=== PATIENT | female | born 1975 | race African-American/Black ===

== ENCOUNTER 2019-03-08 04:46 | Emergency (ER) | payer MEDICAID ==
[~2019-03-08] VITALS: Ht 157.5 cm; Wt 72.6 kg
--- NOTE | 2019-03-08 04:50 | NUR ---
ED Nurse Note: PT BIBA R34 FROM HOME C/C HYPOGLYCEMIA, PT WAS ALTERED AT HOME AND FAMILY MEMBER CALLED 911, ON SCENE PT BS=23. D10 GIVEN ON FIELD BY MEDIC, REPEAT BS 234 by EMS. BS recheck by nurse 136. Pt is AO x 4times, VSS, on room air no distress. ERMD seen Pt at bedside.
[2019-03-08 05:24] LABS: BASOPHILS % (AUTO) 1.4 % (0.0-2.0); EOSINOPHILS % (AUTO) 1.9 % (0.0-3.0); HEMATOCRIT 39.2 % (37.0-47.0); HEMOGLOBIN 12.6 G/DL (12.0-16.0); LYMPHOCYTES % (AUTO) 33.9 % (20.0-45.0); MEAN CORPUSCULAR VOLUME 94 FL (80-99); MONOCYTES % (AUTO) 5.9 % (1.0-10.0); NEUTROPHILS % (AUTO) 56.9 % (45.0-75.0); PLATELET COUNT 223 K/UL (150-450); RED BLOOD COUNT 4.15 M/UL (4.20-5.40); RED CELL DISTRIBUTION WIDTH 13.5 % (11.6-14.8); WHITE BLOOD COUNT 6.1 K/UL (4.8-10.8)
[2019-03-08 05:27] LABS: ANION GAP 5 mmol/L (5-15); BLOOD UREA NITROGEN 15 mg/dL (7-18); CALCIUM 9.4 MG/DL (8.5-10.1); CARBON DIOXIDE 31 MMOL/L (21-32); CHLORIDE 107 MMOL/L (98-107); CREATININE 0.9 MG/DL (0.55-1.30); POTASSIUM 4.2 MMOL/L (3.5-5.1); SODIUM 143 MMOL/L (136-145)
[2019-03-08 05:32] LABS: ALANINE AMINOTRANSFERASE 59 U/L (12-78); ALBUMIN 3.4 G/DL (3.4-5.0); ALBUMIN/GLOBULIN RATIO 0.8 (1.0-2.7); ALKALINE PHOSPHATASE 100 U/L (46-116); ASPARTATE AMINO TRANSFERASE 55 U/L (15-37); BILIRUBIN,TOTAL 0.5 MG/DL (0.2-1.0)
--- NOTE | 2019-03-08 05:32 | NUR ---
ED Nurse Note: blood and urine sent to lab.
--- NOTE | 2019-03-08 05:40 | NUR ---
ED Nurse Note: Phone with insurance, knowing Pt will transfer to other hospital. Await for insurance respond back.
[2019-03-08 05:42] VITALS: BP 167/110
[2019-03-08 05:56] LABS: BILIRUBIN, URINE NEGATIVE (NEGATIVE); COLOR,URINE PALE YELLOW; GLUCOSE, URINE (UA) 1+ (NEGATIVE); KETONES,URINE NEGATIVE (NEGATIVE); LEUKOCYTE ESTERASE ,URINE NEGATIVE (NEGATIVE); NITRITE,URINE NEGATIVE (NEGATIVE); PH,URINE 6 (4.5-8.0); PROTEIN,URINE 3+ (NEGATIVE); UROBILINOGEN,URINE NORMAL MG/DL (0.0-1.0)
--- NOTE | 2019-03-08 05:57 | Emergency Room Report ---
History of Present Illness General Chief Complaint: Abnormal Labs Source: Patient, Family Member, EMS Present Illness HPI 43-year-old female presents ED for evaluation. Brought in by EMS from home for altered mental status. Accu-Chek critically low. Given D10. Repeat Accu-Chek improved. Patient states she feels better. History of diabetes. States she takes insulin in the mornings and in the evenings. States she did not miss a meal. States she has been compliant with her medications. States this been no adjustment in her dosages. Son states that this is the third time in the past week where her Accu-Chek was critically low and she required treatment by EMS. The first 2 times patient refused to go to the hospital. No other aggravating relieving factors. Denies any other associated symptoms Allergies: Coded Allergies: No Known Allergies (Unverified , 03/08/19) Patient History Past Medical History: none Past Surgical History: none Pertinent Family History: none Social History: Denies: smoking, alcohol use, drug use Now: No Immunizations: UTD Reviewed Nursing Documentation: PMH: Agreed; PSxH: Agreed Nursing Documentation-PMH Past Medical History: No History, Except For Hx Hypertension: Yes Hx Diabetes: Yes Review of Systems All Other Systems: negative except mentioned in HPI Physical Exam Vital Signs Date Time Temp Pulse Resp B/P (MAP) Pulse Ox O2 Delivery O2 Flow Rate FiO2 03/08/19 04:41 98.2 75 18 185/118 (140) 98 Room Air Sp02 EP Interpretation: reviewed, normal General Appearance: no apparent distress, alert, GCS 15, non-toxic Head: normocephalic, atraumatic Eyes: bilateral eye normal inspection, bilateral eye PERRL ENT: hearing grossly normal, normal pharynx, no angioedema, normal voice Neck: full range of motion, supple/symm/no masses Respiratory: chest non-tender, lungs clear, normal breath sounds, speaking full sentences Cardiovascular #1: regular rate, rhythm, no edema Cardiovascular #2: 2+ carotid (R), 2+ carotid (L), 2+ radial (R), 2+ radial (L) , 2+ dorsalis pedis (R), 2+ dorsalis pedis (L) Gastrointestinal: normal bowel sounds, non tender, soft, non-distended, no guarding, no rebound Rectal: deferred Genitourinary: normal inspection, no CVA tenderness Musculoskeletal: back normal, gait/station normal, normal range of motion, non- tender Neurologic: alert, oriented x3, responsive, motor strength/tone normal, sensory intact, speech normal Psychiatric: judgement/insight normal, memory normal, mood/affect normal, no suicidal/homicidal ideation Reflexes: 3+ bicep (R), 3+ bicep (L), 3+ tricep (R), 3+ tricep (L), 3+ knee (R) , 3+ knee (L) Lymphatic: no adenopathy Medical Decision Making Diagnostic Impression: Primary Impression: Hypoglycemia Additional Impression: UTI (urinary tract infection) Qualified Codes: N39.0 - Urinary tract infection, site not specified ER Course Hospital Course 43-year-old female presenting to ED with generalized weakness, low FS in field Differential diagnoses include: dehyration, sepsis, hypoglycemia Clinical course Patient placed on stretcher. On front desk monitor. After initial history and physical I ordered labs Labs-glucose 94, electrolytes ok, no leukocytosis, hb/hct stable, UA + bacteria Given antibiotics in ED. This is the third episode of hypoglycemia in 1 week. Patient will require inpatient management of her medications. because of insurance patient will be transferred. States that she would prefer not to be transferred and will follow up with her PMD today. Patient states she wishes to go home. Understands the risks of leaving. Patient has competency to make her own decisions. Signed AMA form. i. I feel this is a highly complex case requiring extensive working including EKG/Rhythm strip, Xray/CT/US, Blood/urine lab work, repeat exams while in ED, and administration of strong opiates/narcotics for pain control, admission to hospital or close patient follow up. diagnosis - hypoglycemia, UTI patient left AMA Labs Test 03/08/19 04:50 03/08/19 05:28 White Blood Count 6.1 K/UL (4.8-10.8) Red Blood Count 4.15 M/UL (4.20-5.40) Hemoglobin 12.6 G/DL (12.0-16.0) Hematocrit 39.2 % (37.0-47.0) Mean Corpuscular Volume 94 FL (80-99) Mean Corpuscular Hemoglobin 30.4 PG (27.0-31.0) Mean Corpuscular Hemoglobin Concent 32.2 G/DL (32.0-36.0) Red Cell Distribution Width 13.5 % (11.6-14.8) Platelet Count 223 K/UL (150-450) Mean Platelet Volume 6.2 FL (6.5-10.1) Neutrophils (%) (Auto) 56.9 % (45.0-75.0) Lymphocytes (%) (Auto) 33.9 % (20.0-45.0) Monocytes (%) (Auto) 5.9 % (1.0-10.0) Eosinophils (%) (Auto) 1.9 % (0.0-3.0) Basophils (%) (Auto) 1.4 % (0.0-2.0) Sodium Level 143 MMOL/L (136-145) Potassium Level 4.2 MMOL/L (3.5-5.1) Chloride Level 107 MMOL/L (98-107) Carbon Dioxide Level 31 MMOL/L (21-32) Anion Gap 5 mmol/L (5-15) Blood Urea Nitrogen 15 mg/dL (7-18) Creatinine 0.9 MG/DL (0.55-1.30) Estimat Glomerular Filtration Rate > 60 mL/min (>60) Glucose Level 94 MG/DL (74-106) Calcium Level 9.4 MG/DL (8.5-10.1) Magnesium Level 2.1 MG/DL (1.8-2.4) Total Bilirubin 0.5 MG/DL (0.2-1.0) Aspartate Amino Transf (AST/SGOT) 55 U/L (15-37) Alanine Aminotransferase (ALT/SGPT) 59 U/L (12-78) Alkaline Phosphatase 100 U/L (46-116) Total Protein 7.7 G/DL (6.4-8.2) Albumin 3.4 G/DL (3.4-5.0) Globulin 4.3 g/dL Albumin/Globulin Ratio 0.8 (1.0-2.7) Last Vital Signs Date Time Temp Pulse Resp B/P (MAP) Pulse Ox O2 Delivery O2 Flow Rate FiO2 03/08/19 05:42 98.3 88 18 167/110 100 Room Air Status: improved Disposition: AGAINST MEDICAL ADVICE Condition: Stable Scripts Cephalexin* (KEFLEX*) 500 Mg Capsule 500 MG ORAL EVERY 6 HOURS for 7 Days, CAP Prov: Shad Amezquita MD 03/08/19 Referrals: NON PHYSICIAN (PCP) Shad Amezquita MD Mar 08, 2019 05:57
[2019-03-08 06:07] LABS: APPEARANCE,URINE SLIGHTLY CLOUDY
[2019-03-08] MEDS ORDERED: cefTRIAXone 1 GM in NS 55 ML IVPB ONE (06:15)
--- NOTE | 2019-03-08 07:15 | NUR ---
HAND-OFF: Report given to Tessie ELLIOTT.
[2019-03-08 07:18] VITALS: BP 194/100
[2019-03-08 07:50] VITALS: BP 154/110
[2019-03-08] MEDS ORDERED: CEPHALEXIN500 MG ORAL (07:52)
[2019-03-08 08:12] VITALS: BP 154/110
--- NOTE | 2019-03-08 08:12 | NUR ---
AMA: SEE AMA FORM. Patient left AMA, Dr. Amezquita at bedside, explained to patient and family the risk of leaving AMA. patient reports that she does not want to get transferred out, she will visit her PMD today this morning when the office opens at 9AM. IV removed without complication. Patient left with all of her belongings in steady gait.
== END 2019-03-08 08:12 | disposition left against medical advice (07) ==
LOC: EDBD 04:46 → EMR 05:26 → CANBEDREQ 07:44 → EMR 08:12
DX: E11.649 Type 2 diabetes mellitus with hypoglycemia without coma (principal); N39.0 Urinary tract infection, site not specified; I10 Essential (primary) hypertension; Z79.4 Long term (current) use of insulin
CPT/HCPCS: 36415; 80053; 81003; 82009; 82962; 83735; 85025; 87086; 96365; 96375; 99284; J0360; J0696

== ENCOUNTER 2020-04-29 08:22 | Emergency (ER) | payer MEDICAID ==
[~2020-04-29] VITALS: Ht 157.5 cm; Wt 79.4 kg
[~2020-04-29 08:22] MED LIST: CEPHALEXIN500 MG ORAL
[2020-04-29 08:24] VITALS: BP 187/99
--- NOTE | 2020-04-29 08:24 | NUR ---
ED Nurse Note: PT ARRIVED WITH RA 94 FROM HOME DUE TO HYPOLGYCEMIA 67, PER EMS PT RECEIVED 250 OF D10. PT IS AOX4, ON ROOM AIR. PT HAS TO IV LINES ETABLISHED PER EMS. PT IS ABLE TO ASNWER QUESTION, NO ACUTE DISTRESS NOTED AT THIS TIME. ERMD AT BED SIDE
--- NOTE | 2020-04-29 08:25 | NUR ---
ED Nurse Note: (KARLOS PEACE): [phone]
--- NOTE | 2020-04-29 08:32 | Emergency Room Report ---
History of Present Illness General Chief Complaint: Abnormal Labs Source: Patient Present Illness HPI The patient is brought in by EMS for hypoglycemia. Her children heard her fall. She scraped her leg. Her blood sugar at home was 27. Paramedics report that your level was too low to register on their machine. They administered D10 water 250 ml. Their second blood sugar was 67. The patient remembers taking her insulin last night. She did not measure her blood sugar at that time. She takes 30 and 14 at night and 40 and 10 in the morning. She did not take her morning insulin. The last hypoglycemic episode she had was 2 days ago. She refused transport at that time. She denies any headache or neck pain. She does not believe she hit her head. She has not changed her insulin dosing recently. She states she ate last night also. She was seen here February 2019 with hypoglycemia. During that visit she left AGAINST MEDICAL ADVICE. The only other somatic complaints that she has is swelling in her legs. She intermittently takes water pills for this. She denies any calf pain. No fevers, chills, sore throat, chest pain, palpitations, nausea, vomiting, diarrhea, dysuria, abdominal pain, shortness of breath, joint pain, rashes, depression, anxiety, visual changes,headache. Due for her cycle to begin soon. Allergies: Coded Allergies: No Known Allergies (Unverified , 03/08/19) COVID-19 Screening Contact w/high risk pt: No Experienced COVID-19 symptoms?: No COVID-19 Testing performed DITCHER OPERATOR: No Patient History Past Medical History: see triage record Social History: Reports: smoking, alcohol use - rare Social History Narrative at home with and 3 children, 15, 20 and 25 Reviewed Nursing Documentation: PMH: Agreed; PSxH: Agreed Nursing Documentation-PMH Past Medical History: No History, Except For Hx Hypertension: Yes Hx Diabetes: Yes Review of Systems All Other Systems: negative except mentioned in HPI Physical Exam Vital Signs Date Time Temp Pulse Resp B/P (MAP) Pulse Ox O2 Delivery O2 Flow Rate FiO2 04/29/20 08:22 95.5 68 16 171/101 (124) 100 Room Air Sp02 EP Interpretation: reviewed, normal General Appearance: alert - GCS 14 Head: normocephalic, atraumatic Eyes: bilateral eye normal inspection, bilateral eye PERRL, bilateral eye EOMI ENT: moist mucus membranes Neck: supple Respiratory: lungs clear, normal breath sounds Cardiovascular #1: regular rate, rhythm, edema Cardiovascular #2: 2+ radial (R) Gastrointestinal: non tender, soft, decreased bowel sounds, overweight Genitourinary: no CVA tenderness Musculoskeletal: no calf tenderness Neurologic: motor strength/tone normal, radio aerial installer III-XII nml as tested, oriented - X2, DTRs symmetric, sensory intact, other - Slow to respond Psychiatric: depressed affect Skin: other - Shallow scrape right lower leg, cold Medical Decision Making Diagnostic Impression: Primary Impression: Hypoglycemia Additional Impressions: Hypothermia Qualified Codes: T68.XXXA - Hypothermia, initial encounter Hypertension Qualified Codes: I10 - Essential (primary) hypertension Anemia Qualified Codes: D64.9 - Anemia, unspecified Renal insufficiency ER Course Patient presents with hypoglycemic episode and hypothermic. Differential includes sepsis, insulin excess, renal dysfunction, acute myocardial infarction amongst others. Patient evaluated with EKG, chest x-ray and labs. Patient given a dose of D50 water and warming blanket. The patient is slow speaking and this may be related to the hypoglycemic episode that may have been long during the night. Repeated evaluations indicated. Patient placed on flag signalman. EKG sinus rhythm 74 right axis deviation prolonged QT of 192 ms. Chest x-ray negative. Labs remarkable for low blood sugar and renal insufficiency. Patient is also anemic. White count is normal. Hypertensive. Losartan given. Tyesha hugger given for hypothermia. Patient ate. Discussed with patient the need for observation hospitalization due to hypothermia, hypoglycemia, renal insufficiency and anemia. Patient states that she wants to go home to take care of her minor children. We attempted to have her speak with her to take care of her kids. She felt that she could not trust him. She was advised of the risk of if she leaves. Patient is much more alert and not speaking haltingly. Patient understands risk and still decided to sign out AGAINST MEDICAL ADVICE as she did not want to be transferred to [facility] as well [facility] as she needs to take care of her minor daughter. Final blood sugar 91. Patient was advised to reduce her insulin dose to 10+30 twice daily. In addition she requested a prescription for water pill. A prescription for Dyazide was dispensed. Patient was advised to return if she is not doing well or if she changes her mind regarding hospitalization. Last Vital Signs Date Time Temp Pulse Resp B/P (MAP) Pulse Ox O2 Delivery O2 Flow Rate FiO2 04/29/20 13:31 97.9 88 19 167/94 98 Room Air EKG Diagnostic Results Rate: normal Rhythm: NSR ST Segments: no acute changes - Right axis deviation prolonged QT 192 ms Rhythm Strip Diag. Results Rhythm: NSR, no PVC's, no ectopy Chest X-Ray Diagnostic Results Chest X-Ray Diagnostic Results : Chest X-Ray Ordered: Yes # of Views/Limited/Complete: 1 View Indication: Other EP Interpretation: Yes Interpretation: no consolidation, no effusion, no pneumothorax Impression: No acute disease Electronically Signed by: Electronically signed by Jose Bland MD Last Vital Signs Date Time Temp Pulse Resp B/P (MAP) Pulse Ox O2 Delivery O2 Flow Rate FiO2 04/29/20 13:31 97.9 88 19 167/94 98 Room Air Status: improved Disposition: AGAINST MEDICAL ADVICE Condition: Serious Scripts Triamterene/Hydrochlorothiazide* (DYAZIDE 37.5-25 MG TAB*) 1 Each Tablet 1 TAB ORAL DAILY, #20 TAB Prov: Jose Bland MD 04/29/20 Jose Bland MD Apr 29, 2020 08:32
--- NOTE | 2020-04-29 08:34 | NUR ---
ED Nurse Note: ERMD AWARE OF PT TEMPERATURE, 4 WARM BLANKETS PLACED ON PT.
--- NOTE | 2020-04-29 08:41 | NUR ---
ED Nurse Note: MEDICATION ADMINISTERED, PT PROVIDE WITH ORANGE JUICE AND SANDWHICH.
--- NOTE | 2020-04-29 08:43 | NUR ---
ED Nurse Note: PT UNABLE TO URINATE AT THIS TIME, WILL REATTEMPT LATER.
--- NOTE | 2020-04-29 08:51 | NUR ---
ED Nurse Note: XRAY AT BEDSIDE
[2020-04-29] MEDS ORDERED: LOSARTAN POTASS50 MG ORAL (09:05)
[2020-04-29] MEDS ORDERED: Losartan 25mg tab ORAL ONE (09:15)
--- NOTE | 2020-04-29 09:16 | NUR ---
ED Nurse Note: PT TEMPERATURE SHOW NOW CHANGES WITH WARM BLANKETS, BEAR HUGGER PLACED AT 32 CELCIUS
[2020-04-29 09:20] LABS: BASOPHILS % (AUTO) 0.6 % (0.0-2.0); EOSINOPHILS % (AUTO) 1.4 % (0.0-3.0); HEMOGLOBIN 9.1 G/DL (12.0-16.0); MEAN CORPUSCULAR VOLUME 91 FL (80-99); MONOCYTES % (AUTO) 5.4 % (1.0-10.0); NEUTROPHILS % (AUTO) 63.6 % (45.0-75.0); PLATELET COUNT 188 K/UL (150-450); RED BLOOD COUNT 3.07 M/UL (4.20-5.40); RED CELL DISTRIBUTION WIDTH 14.2 % (11.6-14.8); WHITE BLOOD COUNT 6.2 K/UL (4.8-10.8)
--- NOTE | 2020-04-29 09:31 | Diagnostic Imaging Report ---
EXAM: XR Chest, 1 View CLINICAL HISTORY: ALOC TECHNIQUE: Frontal view of the chest. COMPARISON: No relevant prior studies available. FINDINGS: Lungs: Unremarkable. No consolidation. Pleural space: Unremarkable. No pneumothorax. Heart: Unremarkable. No cardiomegaly. Mediastinum: Unremarkable. Bones/joints: Unremarkable. IMPRESSION: No acute cardiopulmonary process.
--- NOTE | 2020-04-29 09:34 | NUR ---
ED Nurse Note: Derrell hernandez to 38 C Addendum: 04/29/20 at 0936 by PDELEON ED Nurse Note: Derrell page increased* to 38 C
[2020-04-29 09:43] LABS: ALANINE AMINOTRANSFERASE 72 U/L (12-78); ALBUMIN 2.5 G/DL (3.4-5.0); ALBUMIN/GLOBULIN RATIO 0.6 (1.0-2.7); ALKALINE PHOSPHATASE 215 U/L (46-116); ANION GAP 6 mmol/L (5-15); ASPARTATE AMINO TRANSFERASE 51 U/L (15-37); BILIRUBIN,TOTAL 0.3 MG/DL (0.2-1.0); BLOOD UREA NITROGEN 36 mg/dL (7-18); CALCIUM 8.5 MG/DL (8.5-10.1); CARBON DIOXIDE 27 MMOL/L (21-32); CHLORIDE 110 MMOL/L (98-107); CREATINE KINASE 510 U/L (26-308); CREATININE 1.6 MG/DL (0.55-1.30); SODIUM 143 MMOL/L (136-145)
--- NOTE | 2020-04-29 09:59 | NUR ---
ED Nurse Note: bedside commode provide to pt at bedside. pt is attempting to obtain urine.
[2020-04-29 10:10] VITALS: BP 184/113
[2020-04-29 10:10] LABS: APPEARANCE,URINE CLEAR; BILIRUBIN, URINE NEGATIVE (NEGATIVE); COLOR,URINE PALE YELLOW; GLUCOSE, URINE (UA) NEGATIVE (NEGATIVE); KETONES,URINE NEGATIVE (NEGATIVE); LEUKOCYTE ESTERASE ,URINE NEGATIVE (NEGATIVE); NITRITE,URINE NEGATIVE (NEGATIVE); PH,URINE 6 (4.5-8.0); PROTEIN,URINE 3+ (NEGATIVE); UROBILINOGEN,URINE NORMAL MG/DL (0.0-1.0)
--- NOTE | 2020-04-29 10:41 | NUR ---
ED Nurse Note: bruno page increaesed to 43 degrees C Addendum: 04/29/20 at 1042 by PDELEON ED Nurse Note: bruno page increaesed to 43 degrees C, pt temperature at 96.3 F
--- NOTE | 2020-04-29 11:09 | NUR ---
ED Nurse Note: Pt current temperature at 96.9 F
--- NOTE | 2020-04-29 11:52 | NUR ---
ED Nurse Note: rechecked pt temperature; 97.5 F
[2020-04-29 12:05] VITALS: BP 166/98
--- NOTE | 2020-04-29 12:07 | NUR ---
ED Nurse Note: Informed ermd of pt temperature of 97.5; per ermd he will go speak to the pt.
--- NOTE | 2020-04-29 12:15 | NUR ---
ED Nurse Note: spoke with pt john; he is on the way to fern picker pt.
--- NOTE | 2020-04-29 12:17 | NUR ---
ED Nurse Note: ERMD at bed side, pt signed AMA
[2020-04-29] MEDS ORDERED: TRIAMTERENE-HC1 EAC5 ORAL (13:09)
[2020-04-29 13:31] VITALS: BP 167/94
--- NOTE | 2020-04-29 13:31 | NUR ---
ED Nurse Note: out in waiting room, pt has been cleared, temperature stabilized ermd clearing pt for DC. IV site removed. pt has all belongings. pt able to ambulate with steady gait.
--- NOTE | 2020-05-04 13:58 | Cardiology Report ---
APPROVED REPORT EKG Measurement Heart [id number] CT [id number] <Conclusion> Normal sinus rhythm Rightward axis Prolonged QT Abnormal ECG
== END 2020-04-29 13:30 | disposition left against medical advice (07) ==
LOC: EDBD 08:22 → EMR 08:35 → CANBEDREQ 12:20 → EMR 13:30
DX: E11.649 Type 2 diabetes mellitus with hypoglycemia without coma (principal); T68.XXXA Hypothermia, initial encounter; D64.9 Anemia, unspecified; N28.9 Disorder of kidney and ureter, unspecified; F17.200 Nicotine dependence, unspecified, uncomplicated; I10 Essential (primary) hypertension; S80.811A Abrasion, right lower leg, initial encounter; X58.XXXA Exposure to other specified factors, initial encounter; Y92.9 Unspecified place or not applicable
CPT/HCPCS: 36415; 71045; 80053; 80307; 81003; 81025; 82550; 83605; 83690; 83880; 84484; 85025; 85610; 85730; 87040; 87181; 93005; 96374; Z7502; 99284

== ENCOUNTER 2020-05-01 09:20 | Emergency (ER) | payer MEDICAID ==
[~2020-05-01] VITALS: Ht 157.5 cm; Wt 78.9 kg
[~2020-05-01 09:20] MED LIST changes: +LOSARTAN POTASS50 MG ORAL; +TRIAMTERENE-HC1 EAC5 ORAL
[2020-05-01 09:42] VITALS: BP 171/89
--- NOTE | 2020-05-01 09:51 | NUR ---
ED Nurse Note: Patient walked in to ER because she was called by ED MD, and told she has a blood infection and needs antibiotics. Patient denies any symptoms. Per patient she was here at this Friday, because her daughter find her unresponsive in her bedroom. Patient has Hx of HTN, DM. Patient presented calm, AAO x4, BP 196.101, other VSS at this time. Patient was conected to monitor.
--- NOTE | 2020-05-01 10:31 | NUR ---
ED Nurse Note: IV line was established on right AC 20 ga, blood collected sent to lab
[2020-05-01 11:03] LABS: BASOPHILS % (AUTO) 0.8 % (0.0-2.0); EOSINOPHILS % (AUTO) 2.3 % (0.0-3.0); HEMATOCRIT 27.9 % (37.0-47.0); HEMOGLOBIN 8.9 G/DL (12.0-16.0); LYMPHOCYTES % (AUTO) 34.7 % (20.0-45.0); MEAN CORPUSCULAR VOLUME 92 FL (80-99); MONOCYTES % (AUTO) 7.2 % (1.0-10.0); PLATELET COUNT 212 K/UL (150-450); RED BLOOD COUNT 3.02 M/UL (4.20-5.40); RED CELL DISTRIBUTION WIDTH 14.5 % (11.6-14.8); WHITE BLOOD COUNT 6.2 K/UL (4.8-10.8)
[2020-05-01 11:55] LABS: CALCIUM 8.6 MG/DL (8.5-10.1); CREATININE 1.6 MG/DL (0.55-1.30); POTASSIUM 4.7 MMOL/L (3.5-5.1)
[2020-05-01 11:59] LABS: ALBUMIN 2.6 G/DL (3.4-5.0); ALBUMIN/GLOBULIN RATIO 0.7 (1.0-2.7); BILIRUBIN,TOTAL 0.2 MG/DL (0.2-1.0)
[2020-05-01] MEDS ORDERED: CEPHALEXIN500 MG ORAL (12:19)
[2020-05-01 12:29] VITALS: BP 171/89
--- NOTE | 2020-05-01 12:31 | NUR ---
ED Nurse Note: Patient spoke with Dr. Amezquita, and decided to sign AMA. After thorough explanation about all risks factors, patient signed AMA. Patient was able to walk out with a cane, AAO x4, VSS at this time, patoent got antibiotic prescription.
--- NOTE | 2020-05-01 12:31 | NUR ---
AMA: SEE AMA FORM.
--- NOTE | 2020-05-01 17:06 | Diagnostic Imaging Report ---
Indication: Cough Technique: One view of the chest Comparison: 04/29/2020 Findings: Lungs and pleural spaces are clear. Heart size is normal. No significant change Impression: No acute process
--- NOTE | 2020-05-02 15:16 | Emergency Room Report ---
History of Present Illness General Chief Complaint: Abnormal Labs Source: Patient Present Illness HPI 44-year-old female presents the ED for evaluation. Patient states that she was called back to the ED for a "blood infection". I review charting patient was seen recently for hypoglycemia. Patient subsequently left AMA but blood culture results showed gram-positive cocci in clusters. Patient states she feels fine. Denies any fevers or chills. Denies any weakness. Denies any cough. No other aggravating relieving factors. Denies any other associated symptoms Allergies: Coded Allergies: No Known Allergies (Unverified , 03/08/19) COVID-19 Screening Contact w/high risk pt: No Experienced COVID-19 symptoms?: No Patient History Past Medical History: DM, HTN Past Surgical History: none Pertinent Family History: none Social History: Denies: smoking, alcohol use, drug use Last Menstrual Period: last month Now: No Immunizations: UTD Reviewed Nursing Documentation: PMH: Agreed; PSxH: Agreed Nursing Documentation-PMH Past Medical History: No History, Except For Hx Hypertension: Yes Hx Diabetes: Yes Review of Systems All Other Systems: negative except mentioned in HPI Physical Exam Vital Signs Date Time Temp Pulse Resp B/P (MAP) Pulse Ox O2 Delivery O2 Flow Rate FiO2 05/01/20 09:33 98.4 103 20 171/89 (116) 96 Room Air Sp02 EP Interpretation: reviewed, normal General Appearance: no apparent distress, alert, GCS 15, non-toxic Head: normocephalic, atraumatic Eyes: bilateral eye normal inspection, bilateral eye PERRL ENT: hearing grossly normal, normal pharynx, no angioedema, normal voice Neck: full range of motion, supple/symm/no masses Respiratory: chest non-tender, lungs clear, normal breath sounds, speaking full sentences Cardiovascular #1: regular rate, rhythm, no edema Cardiovascular #2: 2+ carotid (R), 2+ carotid (L), 2+ radial (R), 2+ radial (L), 2+ dorsalis pedis (R), 2+ dorsalis pedis (L) Gastrointestinal: normal bowel sounds, non tender, soft, non-distended, no guarding, no rebound Rectal: deferred Genitourinary: normal inspection, no CVA tenderness Musculoskeletal: back normal, normal range of motion, gait/station normal, non- tender Neurologic: alert, motor strength/tone normal, oriented x3, sensory intact, responsive, speech normal Psychiatric: judgement/insight normal, memory normal, mood/affect normal, no suicidal/homicidal ideation Reflexes: 3+ bicep (R), 3+ bicep (L), 3+ tricep (R), 3+ tricep (L), 3+ knee (R), 3+ knee (L) Lymphatic: no adenopathy Medical Decision Making Diagnostic Impression: Primary Impression: Abnormal laboratory test result ER Course Hospital Course 44-year-old female called back for "blood infection". Positive blood cultures from ED visit few days ago Differential diagnoses include: Pneumonia, UTI, sepsis, dehydration, MA/unstable angina Clinical course Patient placed on stretcher. On monitor car operator with stable vitals are ED course. After initial history and physical, I ordered labs, IV fluids, chest x- ray, lactic acid Labs - electrolytes ok, no leukocytosis, CXR - no acute process I discussed findings with patient. Afebrile, nontoxic-appearing. Asymptomatic. I discussed that the blood culture could be a contaminant. I did offer option for admission for observation but patient declined. Patient states she wishes to go home. Understands the risks of leaving. Patient has competency to make her own decisions. Signed AMA form. I feel this is a highly complex case requiring extensive working including EKG/Rhythm strip, Xray/CT/US, Blood/urine lab work, repeat exams while in ED, and administration of strong opiates/narcotics for pain control, admission to hospital or close patient follow up. Diagnosis - abnormal lab test result patient left AMA Labs Test 05/01/20 10:10 05/01/20 11:18 White Blood Count 6.2 K/UL (4.8-10.8) Red Blood Count 3.02 M/UL (4.20-5.40) Hemoglobin 8.9 G/DL (12.0-16.0) Hematocrit 27.9 % (37.0-47.0) Mean Corpuscular Volume 92 FL (80-99) Mean Corpuscular Hemoglobin 29.5 PG (27.0-31.0) Mean Corpuscular Hemoglobin Concent 32.0 G/DL (32.0-36.0) Red Cell Distribution Width 14.5 % (11.6-14.8) Platelet Count 212 K/UL (150-450) Mean Platelet Volume 6.4 FL (6.5-10.1) Neutrophils (%) (Auto) 55.0 % (45.0-75.0) Lymphocytes (%) (Auto) 34.7 % (20.0-45.0) Monocytes (%) (Auto) 7.2 % (1.0-10.0) Eosinophils (%) (Auto) 2.3 % (0.0-3.0) Basophils (%) (Auto) 0.8 % (0.0-2.0) Sodium Level 144 MMOL/L (136-145) Potassium Level 4.7 MMOL/L (3.5-5.1) Chloride Level 111 MMOL/L (98-107) Carbon Dioxide Level 25 MMOL/L (21-32) Anion Gap 8 mmol/L (5-15) Blood Urea Nitrogen 33 mg/dL (7-18) Creatinine 1.6 MG/DL (0.55-1.30) Estimat Glomerular Filtration Rate 42.7 mL/min (>60) Glucose Level 87 MG/DL (74-106) Lactic Acid Level 1.30 mmol/L (0.4-2.0) Calcium Level 8.6 MG/DL (8.5-10.1) Total Bilirubin 0.2 MG/DL (0.2-1.0) Aspartate Amino Transf (AST/SGOT) 75 U/L (15-37) Alanine Aminotransferase (ALT/SGPT) 75 U/L (12-78) Alkaline Phosphatase 224 U/L (46-116) Total Protein 6.5 G/DL (6.4-8.2) Albumin 2.6 G/DL (3.4-5.0) Globulin 3.9 g/dL Albumin/Globulin Ratio 0.7 (1.0-2.7) Chest X-Ray Diagnostic Results Chest X-Ray Diagnostic Results : Chest X-Ray Ordered: Yes # of Views/Limited/Complete: 1 View Indication: Other EP Interpretation: Yes Interpretation: no consolidation, no effusion, no pneumothorax, no acute cardiopulmonary disease Impression: No acute disease Electronically Signed by: Electronically signed by Shad Amezquita MD Last Vital Signs Date Time Temp Pulse Resp B/P (MAP) Pulse Ox O2 Delivery O2 Flow Rate FiO2 05/01/20 12:29 98.4 20 171/89 96 Room Air 05/01/20 09:33 103 Status: improved Disposition: AGAINST MEDICAL ADVICE Condition: Stable Scripts Cephalexin* (KEFLEX*) 500 Mg Capsule 500 MG ORAL EVERY 6 HOURS, #28 CAP Prov: Shad Amezquita MD 05/01/20 Referrals: [facility],REFERRING (PCP) Patient Instructions: Blood Culture Test Shad Amezquita MD May 02, 2020 15:16
== END 2020-05-01 12:29 | disposition left against medical advice (07) ==
LOC: EMR 09:50
DX: R79.9 Abnormal finding of blood chemistry, unspecified (principal); E11.9 Type 2 diabetes mellitus without complications; I10 Essential (primary) hypertension
CPT/HCPCS: 36415; 71045; 80053; 82962; 83605; 85025; Z7502; 99283

== ENCOUNTER 2020-05-12 11:16 | Emergency (ER) | payer MEDICAID ==
[~2020-05-12] VITALS: Ht 157.5 cm; Wt 78.9 kg
--- NOTE | 2020-05-12 11:16 | NUR ---
ED Nurse Note: brought in by ambulance kevin ra 94 from home c/o hypoglycemia; blood glucose 20 at scene. ems admin 250ml of D10w; repeat accucheck 150. patient ao4 with no acute distress. ambulates with assistance. changed into gown; attached to monitor. all safety measures met. .
[2020-05-12 11:30] VITALS: BP 190/120
--- NOTE | 2020-05-12 11:30 | NUR ---
ED Nurse Note: iv access established prior to arrival. blood and urine collected; sent down to lab.
[2020-05-12] MEDS ORDERED: Benazepril 10mg tab ORAL ONE (11:45)
[2020-05-12 11:53] LABS: APPEARANCE,URINE SLIGHTLY CLOUDY; BILIRUBIN, URINE NEGATIVE (NEGATIVE); COLOR,URINE PALE YELLOW; GLUCOSE, URINE (UA) NEGATIVE (NEGATIVE); KETONES,URINE NEGATIVE (NEGATIVE); LEUKOCYTE ESTERASE ,URINE 1+ (NEGATIVE); NITRITE,URINE NEGATIVE (NEGATIVE); PH,URINE 6 (4.5-8.0); PROTEIN,URINE 4+ (NEGATIVE); UROBILINOGEN,URINE NORMAL MG/DL (0.0-1.0)
[2020-05-12 11:55] LABS: BASOPHILS % (AUTO) 1.7 % (0.0-2.0); EOSINOPHILS % (AUTO) 1.3 % (0.0-3.0); HEMOGLOBIN 10.7 G/DL (12.0-16.0); LYMPHOCYTES % (AUTO) 37.8 % (20.0-45.0); MEAN CORPUSCULAR VOLUME 92 FL (80-99); MONOCYTES % (AUTO) 5.1 % (1.0-10.0); NEUTROPHILS % (AUTO) 54.1 % (45.0-75.0); PLATELET COUNT 222 K/UL (150-450); RED BLOOD COUNT 3.59 M/UL (4.20-5.40); RED CELL DISTRIBUTION WIDTH 14.5 % (11.6-14.8); WHITE BLOOD COUNT 5.2 K/UL (4.8-10.8)
[2020-05-12 12:12] LABS: CALCIUM 8.9 MG/DL (8.5-10.1); CREATININE 1.6 MG/DL (0.55-1.30); POTASSIUM 4.9 MMOL/L (3.5-5.1)
[2020-05-12 12:24] LABS: ALBUMIN 2.9 G/DL (3.4-5.0); ALBUMIN/GLOBULIN RATIO 0.6 (1.0-2.7); BILIRUBIN,TOTAL 0.4 MG/DL (0.2-1.0)
[2020-05-12] MEDS ORDERED: cefTRIAXone 1 GM in NS 55 ML IVPB ONE (13:30)
--- NOTE | 2020-05-12 13:42 | Emergency Room Report ---
History of Present Illness General Chief Complaint: Abnormal Labs Source: Patient, EMS Present Illness HPI Patient is a 44-year-old female brought in by EMS after low blood sugar at home. History of diabetes. Had recent ER visit for low blood sugar. Patient states that she had not been having any increased pain. Had recently reduced her insulin dosage. Takes medications for hypertension but did not take her medication this morning. Denies any regular alcohol use. States that she does not take metformin. Had not been having any vomiting or diarrhea. Had recent ER visit with some positive blood culture.Patient been given IV dextrose in the field. Allergies: Coded Allergies: No Known Allergies (Unverified , 03/08/19) COVID-19 Screening Contact w/high risk pt: No Experienced COVID-19 symptoms?: No COVID-19 Testing performed CUSTOMER SUCCESS MANAGER: No Patient History Past Medical History: see triage record Past Surgical History: jian Now: No Reviewed Nursing Documentation: PMH: Agreed; PSxH: Agreed Nursing Documentation-PMH Past Medical History: No History, Except For Hx Hypertension: Yes Hx Diabetes: Yes Review of Systems All Other Systems: negative except mentioned in HPI Physical Exam Vital Signs Date Time Temp Pulse Resp B/P (MAP) Pulse Ox O2 Delivery O2 Flow Rate FiO2 05/12/20 11:08 97.9 80 16 190/120 (143) 98 Room Air Sp02 EP Interpretation: reviewed, normal General Appearance: normal inspection, well appearing, no apparent distress, alert, GCS 15 Head: atraumatic ENT: normal ENT inspection, hearing grossly normal, normal voice Neck: normal inspection, full range of motion, supple, no bony tend Respiratory: normal inspection, lungs clear, normal breath sounds, no respiratory distress, no retraction, no wheezing Cardiovascular #1: regular rate, rhythm, no edema Gastrointestinal: normal inspection, normal bowel sounds, non tender, soft, no guarding, no hernia Genitourinary: no CVA tenderness Musculoskeletal: normal inspection, back normal, normal range of motion Neurologic: alert, motor strength/tone normal, electromagnet crane operator III-XII nml as tested, oriented x3, responsive, speech normal, normal inspection Psychiatric: normal inspection, judgement/insight normal, mood/affect normal Medical Decision Making Diagnostic Impression: Primary Impression: Hypoglycemia Additional Impressions: UTI (urinary tract infection) Renal insufficiency ER Course Patient presented for hypoglycemia. Differential diagnosis include was not limited to sepsis, renal insufficiency, insulin overdose among others. Because of complexity of patient's case laboratory tests and imaging studies were ordered. Patient was noted to have previous recent visits for hypoglycemic episodes. On 1 of these occasions she had a positive blood culture. Patient was given IV antibiotics. Patient was afebrile on this visit. She was advised that I recommended hospitalization and patient stated that she did not want to be hospitalized. Patient's was able to tolerate oral feeding in the emergency department. Patient stated she wanted to leave the hospital AGAINST MEDICAL ADVICE advised her that this was likely unsafe. Patient was advised risk benefits and alternatives of leaving AGAINST MEDICAL ADVICE including loss of current lifestyle and other risks. She indicates understanding. At the time of discharge patient was awake and alert and ambulatory with steady gait. She is advised to return at any time. Labs Test 05/12/20 11:30 05/12/20 13:41 White Blood Count 5.2 K/UL (4.8-10.8) Red Blood Count 3.59 M/UL (4.20-5.40) Hemoglobin 10.7 G/DL (12.0-16.0) Hematocrit 33.0 % (37.0-47.0) Mean Corpuscular Volume 92 FL (80-99) Mean Corpuscular Hemoglobin 29.7 PG (27.0-31.0) Mean Corpuscular Hemoglobin Concent 32.3 G/DL (32.0-36.0) Red Cell Distribution Width 14.5 % (11.6-14.8) Platelet Count 222 K/UL (150-450) Mean Platelet Volume 6.4 FL (6.5-10.1) Neutrophils (%) (Auto) 54.1 % (45.0-75.0) Lymphocytes (%) (Auto) 37.8 % (20.0-45.0) Monocytes (%) (Auto) 5.1 % (1.0-10.0) Eosinophils (%) (Auto) 1.3 % (0.0-3.0) Basophils (%) (Auto) 1.7 % (0.0-2.0) Urine Color Pale yellow Urine Appearance Slightly cloudy Urine pH 6 (4.5-8.0) Urine Specific [place] 1.015 (1.005-1.035) Urine Protein 4+ (NEGATIVE) Urine Glucose (UA) Negative (NEGATIVE) Urine Ketones Negative (NEGATIVE) Urine Blood 3+ (NEGATIVE) Urine Nitrite Negative (NEGATIVE) Urine Bilirubin Negative (NEGATIVE) Urine Urobilinogen Normal MG/DL (0.0-1.0) Urine Leukocyte Esterase 1+ (NEGATIVE) Urine RBC 10-15 /HPF (0 - 2) Urine WBC 2-4 /HPF (0 - 2) Urine Squamous Epithelial Cells Many /LPF (NONE/OCC) Urine Bacteria Few /HPF (NONE) Urine Yeast Few /HPF (NONE) Sodium Level 143 MMOL/L (136-145) Potassium Level 4.9 MMOL/L (3.5-5.1) Chloride Level 111 MMOL/L (98-107) Carbon Dioxide Level 24 MMOL/L (21-32) Anion Gap 8 mmol/L (5-15) Blood Urea Nitrogen 24 mg/dL (7-18) Creatinine 1.6 MG/DL (0.55-1.30) Estimat Glomerular Filtration Rate 42.7 mL/min (>60) Glucose Level 77 MG/DL (74-106) Calcium Level 8.9 MG/DL (8.5-10.1) Total Bilirubin 0.4 MG/DL (0.2-1.0) Aspartate Amino Transf (AST/SGOT) 311 U/L (15-37) Alanine Aminotransferase (ALT/SGPT) 293 U/L (12-78) Alkaline Phosphatase 522 U/L (46-116) Troponin I 0.000 ng/mL (0.000-0.056) Total Protein 7.4 G/DL (6.4-8.2) Albumin 2.9 G/DL (3.4-5.0) Globulin 4.5 g/dL Albumin/Globulin Ratio 0.6 (1.0-2.7) Thyroid Stimulating Hormone (TSH) 3.581 uiU/mL (0.358-3.740) Last Vital Signs Date Time Temp Pulse Resp B/P (MAP) Pulse Ox O2 Delivery O2 Flow Rate FiO2 05/12/20 11:46 190/120 05/12/20 11:30 97.9 89 16 98 Room Air Status: improved Disposition: AGAINST MEDICAL ADVICE Condition: Serious Scripts Cephalexin* (KEFLEX*) 500 Mg Capsule 500 MG ORAL EVERY 6 HOURS, #28 CAP Prov: Yrn Kenny MD 05/12/20 Referrals: [facility],REFERRING (PCP) Yrn Kenny MD May 12, 2020 13:42
[2020-05-12 13:53] VITALS: BP 166/98
--- NOTE | 2020-05-12 13:54 | NUR ---
ED Nurse Note:rechecked BG- 68, given food and drink
[2020-05-12] MEDS ORDERED: CEPHALEXIN500 MG ORAL (14:09)
--- NOTE | 2020-05-12 14:30 | NUR ---
AMA:pt. refused to be admited to the hospital, she signed AMA, ER MD spoke to her, pt. is A/Ox4 ambulatory with steady gait, left ER condition stable SEE AMA FORM.
[2020-05-12 14:39] VITALS: BP 166/98
--- NOTE | 2020-05-12 15:27 | Diagnostic Imaging Report ---
Indication: Abdominal pain, abnormal renal function tests, abnormal liver function tests Technique: Loredo-scale and duplex images of the upper abdomen were obtained Comparison: none Findings: Gallbladder has been removed. Common bile duct measures 5 mm in diameter. No intrahepatic biliary ductal dilatation. Liver demonstrates diffusely increased echogenicity, consistent with diffuse hepatocellular disease, most likely fatty change. Portal vein and hepatic veins are patent. Pancreas is unremarkable. Spleen is unremarkable. Left kidney measures 12.7 cm in length. Right kidney measures 10.9 cm length. Right kidney demonstrates slightly increased echogenicity. Left kidney demonstrates normal echogenicity There is no hydronephrosis. No focal abnormality . Non-aneurysmal abdominal aorta . Impression: Liver demonstrates diffusely increased echogenicity, consistent with diffuse hepatocellular disease, most likely fatty change. Absent gallbladder. Negative for dilated bile ducts Increased right renal echogenicity, no hydronephrosis. This may represent early medical renal disease
--- NOTE | 2020-05-16 17:11 | Cardiology Report ---
APPROVED REPORT EKG Measurement Heart [id number] <Conclusion> Normal sinus rhythm Septal infarct, age undetermined Lateral infarct, age undetermined Abnormal ECG
== END 2020-05-12 14:42 | disposition left against medical advice (07) ==
LOC: EDBD 11:16 → EMR 11:45
DX: E11.649 Type 2 diabetes mellitus with hypoglycemia without coma (principal); N39.0 Urinary tract infection, site not specified; N28.9 Disorder of kidney and ureter, unspecified; Z79.4 Long term (current) use of insulin; I10 Essential (primary) hypertension
CPT/HCPCS: 36415; 76700; 80053; 81001; 82962; 84443; 84484; 85025; 87086; 87181; 93005; 96365; J0696; Z7502; 99284

== ENCOUNTER 2020-05-15 10:51 | Emergency (ER) | payer MEDICAID ==
[~2020-05-15] VITALS: Ht 167.6 cm; Wt 102.1 kg
[2020-05-15 11:14] LABS: BASOPHILS % (AUTO) 1.3 % (0.0-2.0); EOSINOPHILS % (AUTO) 2.2 % (0.0-3.0); HEMATOCRIT 29.6 % (37.0-47.0); HEMOGLOBIN 9.5 G/DL (12.0-16.0); LYMPHOCYTES % (AUTO) 34.6 % (20.0-45.0); MEAN CORPUSCULAR VOLUME 92 FL (80-99); MONOCYTES % (AUTO) 7.4 % (1.0-10.0); NEUTROPHILS % (AUTO) 54.5 % (45.0-75.0); PLATELET COUNT 223 K/UL (150-450); RED BLOOD COUNT 3.22 M/UL (4.20-5.40); RED CELL DISTRIBUTION WIDTH 14.9 % (11.6-14.8); WHITE BLOOD COUNT 4.4 K/UL (4.8-10.8)
[2020-05-15 11:26] VITALS: BP 157/90
[2020-05-15 11:26] LABS: INR 0.9 (0.9-1.1)
[2020-05-15 11:42] LABS: CALCIUM 8.8 MG/DL (8.5-10.1); CREATININE 1.8 MG/DL (0.55-1.30); POTASSIUM 5.8 MMOL/L (3.5-5.1)
--- NOTE | 2020-05-15 11:43 | Emergency Room Report ---
History of Present Illness General Chief Complaint: Abnormal Labs Source: Patient, EMS Present Illness HPI Patient is a 44-year-old female presents for increased weakness. Had previous recent visits for similar symptoms. Had noted to be having low blood sugar at home. Patient was given IV dextrose. Patient reports having multiple similar episodes and had multiple recent ER visits for similar symptoms. Allergies: Coded Allergies: No Known Allergies (Unverified , 03/08/19) COVID-19 Screening Contact w/high risk pt: No Experienced COVID-19 symptoms?: No COVID-19 Testing performed SYSTEM DISPATCHER: No Patient History Past Medical History: see triage record Reviewed Nursing Documentation: PMH: Agreed; PSxH: Agreed Nursing Documentation-PMH Hx Hypertension: Yes Hx Diabetes: Yes Review of Systems All Other Systems: negative except mentioned in HPI Physical Exam Vital Signs Date Time Temp Pulse Resp B/P (MAP) Pulse Ox O2 Delivery O2 Flow Rate FiO2 05/15/20 10:46 97.9 92 17 168/91 (116) 99 Room Air Sp02 EP Interpretation: reviewed, normal General Appearance: normal inspection, well appearing, no apparent distress, alert, GCS 15, non-toxic Head: atraumatic ENT: normal ENT inspection, hearing grossly normal, normal voice Neck: normal inspection, full range of motion, supple, no bony tend Respiratory: normal inspection, lungs clear, normal breath sounds, no respiratory distress, no retraction, no wheezing Cardiovascular #1: normal inspection, normal peripheral pulses, regular rate, rhythm, no edema Gastrointestinal: normal inspection, normal bowel sounds, non tender, soft, no guarding, no hernia Genitourinary: no CVA tenderness Musculoskeletal: normal inspection, back normal, normal range of motion Neurologic: alert, responsive, speech normal, normal inspection Psychiatric: normal inspection, judgement/insight normal, mood/affect normal Medical Decision Making Diagnostic Impression: Primary Impression: Hypoglycemia Additional Impressions: Hypertension Renal insufficiency ER Course Patient presented for low blood sugar. Differential diagnosis include was not limited to sepsis, renal insufficiency, insulin overdose among others. Because of complexity of patient's case laboratory tests and imaging studies were ordered. Patient was noted to have multiple recent visits for similar hypoglycemic episodes. Patient had recurrent hypoglycemia in the emergency department was given IV dextrose. Patient had previously signed out AGAINST MEDICAL ADVICE on prior visits.Patient was noted to have some renal insufficiency. Medications had previously been adjusted but continues to have hypoglycemic episode. Patient was [facility] with [facility] and home physician Dr. Eugene and patient will be transferred to [facility]. Labs Test 05/15/20 10:55 White Blood Count 4.4 K/UL (4.8-10.8) Red Blood Count 3.22 M/UL (4.20-5.40) Hemoglobin 9.5 G/DL (12.0-16.0) Hematocrit 29.6 % (37.0-47.0) Mean Corpuscular Volume 92 FL (80-99) Mean Corpuscular Hemoglobin 29.6 PG (27.0-31.0) Mean Corpuscular Hemoglobin Concent 32.1 G/DL (32.0-36.0) Red Cell Distribution Width 14.9 % (11.6-14.8) Platelet Count 223 K/UL (150-450) Mean Platelet Volume 6.3 FL (6.5-10.1) Neutrophils (%) (Auto) 54.5 % (45.0-75.0) Lymphocytes (%) (Auto) 34.6 % (20.0-45.0) Monocytes (%) (Auto) 7.4 % (1.0-10.0) Eosinophils (%) (Auto) 2.2 % (0.0-3.0) Basophils (%) (Auto) 1.3 % (0.0-2.0) Prothrombin Time 10.5 SEC (9.30-11.50) Prothromb Time International Ratio 0.9 (0.9-1.1) Activated Partial Thromboplast Time 30 SEC (23-33) Sodium Level 143 MMOL/L (136-145) Potassium Level 5.8 MMOL/L (3.5-5.1) Chloride Level 114 MMOL/L (98-107) Carbon Dioxide Level 23 MMOL/L (21-32) Anion Gap 6 mmol/L (5-15) Blood Urea Nitrogen 27 mg/dL (7-18) Creatinine 1.8 MG/DL (0.55-1.30) Estimat Glomerular Filtration Rate 37.2 mL/min (>60) Glucose Level 54 MG/DL (74-106) Calcium Level 8.8 MG/DL (8.5-10.1) Total Bilirubin 0.2 MG/DL (0.2-1.0) Aspartate Amino Transf (AST/SGOT) 98 U/L (15-37) Alanine Aminotransferase (ALT/SGPT) 148 U/L (12-78) Alkaline Phosphatase 418 U/L (46-116) Troponin I 0.005 ng/mL (0.000-0.056) Total Protein 6.9 G/DL (6.4-8.2) Albumin 2.7 G/DL (3.4-5.0) Globulin 4.2 g/dL Albumin/Globulin Ratio 0.6 (1.0-2.7) Thyroid Stimulating Hormone (TSH) 2.784 uiU/mL (0.358-3.740) EKG Diagnostic Results Rate: normal Rhythm: NSR ST Segments: no acute changes Last Vital Signs Date Time Temp Pulse Resp B/P (MAP) Pulse Ox O2 Delivery O2 Flow Rate FiO2 05/15/20 11:26 97.9 82 16 157/90 98 Room Air Status: improved Disposition: SHORT-TERM HOSP Condition: Stable Referrals: [facility],REFERRING (PCP) Yrn Kenny MD May 15, 2020 11:43
[2020-05-15 11:54] LABS: ALBUMIN 2.7 G/DL (3.4-5.0); ALBUMIN/GLOBULIN RATIO 0.6 (1.0-2.7); BILIRUBIN,TOTAL 0.2 MG/DL (0.2-1.0)
[2020-05-15 13:31] LABS: APPEARANCE,URINE CLEAR; BILIRUBIN, URINE NEGATIVE (NEGATIVE); COLOR,URINE PALE YELLOW; GLUCOSE, URINE (UA) NEGATIVE (NEGATIVE); KETONES,URINE NEGATIVE (NEGATIVE); LEUKOCYTE ESTERASE ,URINE NEGATIVE (NEGATIVE); NITRITE,URINE NEGATIVE (NEGATIVE); PH,URINE 6 (4.5-8.0); PROTEIN,URINE 3+ (NEGATIVE); UROBILINOGEN,URINE NORMAL MG/DL (0.0-1.0)
[2020-05-15 13:42] VITALS: BP 150/89
== END 2020-05-15 13:46 | disposition short-term general hospital (02) ==
LOC: EDBD 10:51 → EMR 11:05
DX: E11.649 Type 2 diabetes mellitus with hypoglycemia without coma (principal); I10 Essential (primary) hypertension; N28.9 Disorder of kidney and ureter, unspecified
CPT/HCPCS: 36415; 80053; 81001; 84443; 84484; 85025; 85610; 85730; 96374; Z7502; 99284

== ENCOUNTER 2020-05-24 09:44 | Emergency (ER) | payer MEDICAID ==
[~2020-05-24] VITALS: Ht 162.6 cm; Wt 104.3 kg
--- NOTE | 2020-05-24 09:45 | NUR ---
ED Nurse Note: Pt arrived with RA 34 from home due ALOC, per ems intial blood glucose read "low" which is <25 on their monitor, en route pt was given 250cc of D10 and repeat glucose was 327. At bedside pt blood glucose is 94. Pt appears stupurous but is able to make eye contact when calling her name. pt appears to be falling asleep. Pt is unable to answer questions at this time but is able to follow commands.
[2020-05-24 09:50] VITALS: BP 132/84
--- NOTE | 2020-05-24 10:02 | Emergency Room Report ---
History of Present Illness General Chief Complaint: Altered Level of Consciousness Source: Medical Record, EMS Present Illness HPI Disclaimer: Please note that this report is being documented using GeoP[employer] technology. This can lead to erroneous entry secondary to incorrect interpretat ion by the dictating instrument. HPI: 44-year-old female history of diabetes taking insulin presents for altered mental status. Found difficult to arouse by family members this morning. EMS arrived checking blood sugar and their handheld meter read "low". EMS states this corresponds to a value less than 25. She was given 250 cc D10. Patient was arousable at this point but still not responding appropriately. She is making good eye contact but refusing to speak. She is able to follow simple commands. No evidence of external trauma. Has multiple emergency department visits for same. Per EMS, only insulin was found in the patient's room. No other glycemic controlling medications though they also noted that family was unhelpful with medical history. PMH: Diabetes, hypertension PSH: Unable to obtain from patient Allergies: Unable to obtain from patient Social Hx: Unable to obtain from patient Allergies: Coded Allergies: No Known Allergies (Unverified , 03/08/19) COVID-19 Screening Contact w/high risk pt: No Recent Travel to affected area: No Experienced COVID-19 symptoms?: No COVID-19 Testing performed HOTEL SERVICE SUPERVISOR: No Nursing Documentation-PMH Past Medical History: No History, Except For Hx Hypertension: Yes Hx Diabetes: Yes Hx Seizures: Yes Review of Systems All Other Systems: negative except mentioned in HPI Physical Exam Vital Signs Date Time Temp Pulse Resp B/P (MAP) Pulse Ox O2 Delivery O2 Flow Rate FiO2 05/24/20 09:42 97.9 12 132/84 (100) 100 Room Air 05/24/20 09:50 72 General: Awake, no verbal response, follows some simple commands, no acute distress HEENT: NC/AT. EOMI. pupils are 4 mm reactive bilaterally. Cardiovascular: RRR. S1 and S2 normal. No murmur appreciated Resp: Normal work of breathing. No cough, wheezing or crackles appreciated Abdomen: Abdomen is soft, nondistended. Nontender Skin: Intact. No abrasions, laceration or rash over the exposed skin MSK: Normal tone and bulk. Moving all extremities. No obvious deformity. Neuro: Awake, making good eye contact. No verbal response. Can follow simple commands. Medical Decision Making Diagnostic Impression: Primary Impression: Hypoglycemia Additional Impressions: Altered level of consciousness Renal insufficiency ER Course 44-year-old female presents for evaluation of altered mental status and hypoglycemia. Differential includes but is not limited to medication noncompliance, insulin overdose, intoxication, electrolyte abnormality, renal insufficiency among others. Multiple emergency department visits with similar presentation. Patient received 250cc D10 en route and arriving sugar greater than 300. Mentation appears to be improving. Will obtain labs and monitor in the ED. 1120 EKG unremarkable aside from slightly prolonged QTC. Magnesium within normal limits. Labs show baseline chronic kidney disease with a creatinine of 1.7. Other labs within normal limits. No ketones. Glucose 115. Urinalysis shows bacteria without leukocyte esterase or white cells. Multiple squamous cells may be contaminant. Will send for culture. Patient awake and conversant now. Eating and drinking at bedside. Last thing she remembers last night is taking her insulin. She does not check blood sugar regularly at home. Repeat fingerstick showed a blood sugar level of 58 and D50 was ordered. 1400: Blood sugar levels have been steady over the past few hours. The patient continues to decline admission at this time. States she will follow-up outpatient and does not want to stay in the hospital due to personal reasons. Family on route to take patient home. Instructed to return with new or worsening symptoms and to call her PMD immediately to schedule reevaluation and review of her medications. She understands and agrees with this treatment plan. Laboratory Tests Test 05/24/20 09:50 05/24/20 10:45 05/24/20 10:52 White Blood Count 4.6 K/UL (4.8-10.8) L Red Blood Count 3.34 M/UL (4.20-5.40) L Hemoglobin 10.0 G/DL (12.0-16.0) L Hematocrit 30.0 % (37.0-47.0) L Mean Corpuscular Volume 90 FL (80-99) Mean Corpuscular Hemoglobin 29.9 PG (27.0-31.0) Mean Corpuscular Hemoglobin Concent 33.2 G/DL (32.0-36.0) Red Cell Distribution Width 13.9 % (11.6-14.8) Platelet Count 211 K/UL (150-450) Mean Platelet Volume 6.4 FL (6.5-10.1) L Neutrophils (%) (Auto) 61.3 % (45.0-75.0) Lymphocytes (%) (Auto) 29.1 % (20.0-45.0) Monocytes (%) (Auto) 6.0 % (1.0-10.0) Eosinophils (%) (Auto) 1.3 % (0.0-3.0) Basophils (%) (Auto) 2.3 % (0.0-2.0) H Sodium Level 143 MMOL/L (136-145) Potassium Level 4.7 MMOL/L (3.5-5.1) Chloride Level 112 MMOL/L (98-107) H Carbon Dioxide Level 25 MMOL/L (21-32) Anion Gap 7 mmol/L (5-15) Blood Urea Nitrogen 28 mg/dL (7-18) H Creatinine 1.7 MG/DL (0.55-1.30) H Estimated Glomerular Filtration Rate 39.8 mL/min (>60) Glucose Level 115 MG/DL (74-106) H Calcium Level 8.1 MG/DL (8.5-10.1) L Magnesium Level 2.1 MG/DL (1.8-2.4) Total Bilirubin 0.3 MG/DL (0.2-1.0) Aspartate Amino Transferase (AST) 48 U/L (15-37) H Alanine Aminotransferase (ALT) 79 U/L (12-78) H Alkaline Phosphatase 344 U/L (46-116) H Troponin I 0.005 ng/mL (0.000-0.056) Total Protein 6.5 G/DL (6.4-8.2) Albumin 2.5 G/DL (3.4-5.0) L Globulin 4.0 g/dL Albumin/Globulin Ratio 0.6 (1.0-2.7) L Serum Alcohol < 3 mg/dL Acetone Level Negative (NEGATIVE) Arterial Blood pH 7.316 (7.350-7.450) Arterial Blood Partial Pressure CO2 39.9 mmHg (35.0-45.0) Arterial Blood Partial Pressure O2 174.0 mmHg (75.0-100.0) H Arterial Blood HCO3 19.9 mmol/L (22.0-26.0) L Arterial Blood Oxygen Saturation 98.8 % (95-100) Arterial Blood Base Excess -5.8 (-2-2) L Jonathan Test Positive Urine Color Pale yellow Urine Appearance Slightly cloudy Urine pH 5 (4.5-8.0) Urine Specific [place] 1.020 (1.005-1.035) Urine Protein 3+ (NEGATIVE) H Urine Glucose (UA) Negative (NEGATIVE) Urine Ketones Negative (NEGATIVE) Urine Blood 2+ (NEGATIVE) H Urine Nitrite Negative (NEGATIVE) Urine Bilirubin Negative (NEGATIVE) Urine Urobilinogen Normal MG/DL (0.0-1.0) Urine Leukocyte Esterase Negative (NEGATIVE) Urine RBC Pending Urine WBC Pending Urine Squamous Epithelial Cells Pending Urine Bacteria Pending Urine HCG, Qualitative Pending Urine Opiates Screen Negative (NEGATIVE) Urine Barbiturates Screen Negative (NEGATIVE) Phencyclidine (PCP) Screen Negative (NEGATIVE) Urine Amphetamines Screen Negative (NEGATIVE) Urine Benzodiazepines Screen Negative (NEGATIVE) Urine Cocaine Screen Negative (NEGATIVE) Urine Marijuana (THC) Screen Negative (NEGATIVE) EKG Diagnostic Results Troponin ordered: Yes When was troponin ordered?: May 24, 2020 EKG Time: 09:46 Rate: normal Rhythm: NSR ST Segments: no acute changes Other Impression Sinus rhythm, right axis deviation, prolonged QT interval at 514 ms. Rhythm Strip Diag. Results Rhythm Strip Time: 19:46 EP Interpretation: yes Rate: 70s Rhythm: NSR, no PVC's, no ectopy Last Vital Signs Date Time Temp Pulse Resp B/P (MAP) Pulse Ox O2 Delivery O2 Flow Rate FiO2 05/24/20 09:50 97.9 72 12 132/84 99 Room Air Disposition: HOME, SELF-CARE Condition: Improved Kenroy Washburn MD May 24, 2020 10:02
[2020-05-24 10:04] LABS: BASOPHILS % (AUTO) 2.3 % (0.0-2.0); EOSINOPHILS % (AUTO) 1.3 % (0.0-3.0); LYMPHOCYTES % (AUTO) 29.1 % (20.0-45.0); MEAN CORPUSCULAR VOLUME 90 FL (80-99); NEUTROPHILS % (AUTO) 61.3 % (45.0-75.0); PLATELET COUNT 211 K/UL (150-450); RED BLOOD COUNT 3.34 M/UL (4.20-5.40); RED CELL DISTRIBUTION WIDTH 13.9 % (11.6-14.8); WHITE BLOOD COUNT 4.6 K/UL (4.8-10.8)
--- NOTE | 2020-05-24 10:14 | NUR ---
ED Nurse Note: Pt was able to drink 8oz of apple juice, pt is able to answer questions verbally, pt provided with x 2 warm blankets.
[2020-05-24 10:15] LABS: ANION GAP 7 mmol/L (5-15); BLOOD UREA NITROGEN 28 mg/dL (7-18); CALCIUM 8.1 MG/DL (8.5-10.1); CARBON DIOXIDE 25 MMOL/L (21-32); CHLORIDE 112 MMOL/L (98-107); CREATININE 1.7 MG/DL (0.55-1.30); POTASSIUM 4.7 MMOL/L (3.5-5.1); SODIUM 143 MMOL/L (136-145)
[2020-05-24 10:19] LABS: ALANINE AMINOTRANSFERASE 79 U/L (12-78); ALBUMIN 2.5 G/DL (3.4-5.0); ALBUMIN/GLOBULIN RATIO 0.6 (1.0-2.7); ALKALINE PHOSPHATASE 344 U/L (46-116); ASPARTATE AMINO TRANSFERASE 48 U/L (15-37); BILIRUBIN,TOTAL 0.3 MG/DL (0.2-1.0)
--- NOTE | 2020-05-24 10:59 | NUR ---
ED Nurse Note: Pt finished 24 oz of apple juice, pt also provided with sandwhich. pt urine collected via I&O cath. 1L of urine excreted. sample sent to lab.
[2020-05-24 11:09] LABS: APPEARANCE,URINE SLIGHTLY CLOUDY; BILIRUBIN, URINE NEGATIVE (NEGATIVE); COLOR,URINE PALE YELLOW; GLUCOSE, URINE (UA) NEGATIVE (NEGATIVE); KETONES,URINE NEGATIVE (NEGATIVE); LEUKOCYTE ESTERASE ,URINE NEGATIVE (NEGATIVE); NITRITE,URINE NEGATIVE (NEGATIVE); PH,URINE 5 (4.5-8.0); PROTEIN,URINE 3+ (NEGATIVE); UROBILINOGEN,URINE NORMAL MG/DL (0.0-1.0)
--- NOTE | 2020-05-24 11:20 | NUR ---
ED Nurse Note: Pt on the phone with Carlosaleisha Estrada
[2020-05-24] MEDS ORDERED: FUROSEMIDE40 MG ORAL (11:45)
[2020-05-24] MEDS ORDERED: HUMULIN N100 UNIT/1 SUBQ (11:45)
[2020-05-24] MEDS ORDERED: GABAPENTIN100 MG ORAL (11:45)
[2020-05-24 11:46] VITALS: BP 152/97
--- NOTE | 2020-05-24 12:54 | NUR ---
ED Nurse Note: Pt able to use bedside commode without assitance.
--- NOTE | 2020-05-24 13:14 | NUR ---
ED Nurse Note: john [phone]
--- NOTE | 2020-05-24 13:17 | NUR ---
ED Nurse Note: john notified that pt is ready for discharge. per he is on the way. pt has been provided with orange juice, pt using bedsie commode.
[2020-05-24 14:24] VITALS: BP 143/92
--- NOTE | 2020-05-24 14:24 | NUR ---
ER DISCHARGE NOTE: Patient is cleared to be discharged per ERMD, pt is aox4, on room air, with stable vital signs. pt was given dc instructions, pt was able to verbalize understanding, pt id band and iv site removed without complications. pt is able to ambulate with steady gait. pt took all belongings.
--- NOTE | 2020-05-27 20:15 | Cardiology Report ---
APPROVED REPORT EKG Measurement Heart [id number] <Conclusion> Normal sinus rhythm Right axis deviation Prolonged QT Abnormal ECG
== END 2020-05-24 14:24 | disposition home or self-care (01) ==
LOC: EDBD 09:44 → EMR 10:10
DX: E11.649 Type 2 diabetes mellitus with hypoglycemia without coma (principal); N28.9 Disorder of kidney and ureter, unspecified; G40.909 Epilepsy, unspecified, not intractable, without status epilepticus; I12.9 Hypertensive chronic kidney disease with stage 1 through stage 4 chronic kidney disease, or unspecified chronic kidney disease; E11.22 Type 2 diabetes mellitus with diabetic chronic kidney disease; N18.9 Chronic kidney disease, unspecified
CPT/HCPCS: 36415; 80053; 80307; 81003; 81025; 82009; 82803; 83735; 84484; 85025; 87086; 93005; 96374; G0480; Z7502; 99284

== ENCOUNTER 2020-06-13 06:28 | Emergency (ER) | payer MEDICAID ==
[~2020-06-13] VITALS: Ht 157.5 cm; Wt 79.4 kg
[~2020-06-13 06:28] MED LIST changes: +FUROSEMIDE40 MG ORAL; +GABAPENTIN100 MG ORAL; +HUMULIN N100 UNIT/1 SUBQ
--- NOTE | 2020-06-13 06:43 | Emergency Room Report ---
History of Present Illness General Chief Complaint: Abnormal Labs Source: Patient Present Illness HPI 44-year-old -[place] female with past medical history of insulin- dependent diabetes, hypertension brought in by ambulance with chief complaint of hypoglycemia. Patient was found altered and diaphoretic in her bed. According to EMS, family states that patient has been eating poorly at home. EMS took Accu-Chek on scene which was read as "low". Patient had no focal neurologic deficits. EMS administered D10 250 cc IV with resolution of altered mental status and hypoglycemia. On my evaluation, patient denies any recent medication changes, fever, chills, nausea, vomiting, diarrhea, chest pain, shortness of breath, falls, focal weakness, slurred speech, vision changes, headache, neck pain, rash or other complaints The patient's symptoms were gradual onset, severity was moderate, duration since 1 day. Quality: Generally weak due to hypoglycemia Past medical history: Diabetes, hypertension Past surgical history: Smoking: Denies Alcohol use: Denies Drug use: Denies Review of systems: CONST: No fevers or chills, No night sweats PULMONARY: No productive cough, No shortness of breath CARDIAC: No chest pain, No palpitations GI: No vomiting, No diarrhea , No melena_or_BRBPR : No dysuria, No hematuria, No discharge NEURO: No new_focal_weakness_or_numbness, No confusion, No vision changes 14 point Review of Systems is otherwise negative except per HPI Physical Exam: GENERAL: Awake_alert_ nontoxic, no acute distress Spo2 100% on RA -normal EYES: Extraocular muscles are intact. Conjunctivae clear. Lids without swelling ENT: External nose and ear normal_in_appearance. Oropharynx clear. Head_atraumatic, Moist_oral_mucosa NECK: No JVD. No meningismus. No thyromegaly. Supple. Trachea midline RESP: Normal respiratory effort. Symmetric rise. No stridor. Clear_to_auscultation_No_rales_No_wheezes CARDIAC: Regular rate and regular rhytm. No_significant pedal edema. ABDOMEN: Soft. Nondistended. Nontender_No_rebound_or_guarding. MSK: Normal muscle tone, without rigidity. Extremities without asymmetric deformity or swelling. SKIN: Warm and dry. No visible cyanosis or pallor NEUROLOGIC: Alert, oriented x3. Motor_and_sensation_grossly_intact. No truncal ataxia. Gait_normal Psych: Normal mood and affect, normal judgment and insight - COORDINATION OF CARE Case was discussed with: Patient , Patient's Family Any labs and imaging that were ordered were interpreted as part of the medical decision making: Medical Decision Making/Plan: Differential diagnosis for the patients hypoglycemia include relative overdose of the pts insulin, acute renal failure, poor PO intake, insulin secreting tumor, among others. Patient had serial blood glucose checks while in the ED, and was fed. Accu-Chek on arrival to the emergency department was 92. Accu-Cheks ordered every 30 minutes. Patient denies sulfonylurea. Repeat accucheck was 50. Patient was fed and placed on D5 1/2 NS to prevent further hypoglycemic episodes. I reviewed previous medical records. Given that patient has had 3 occurrences of hypoglycemia in the past 30 days, the patient will be admitted for further serial blood glucose monitoring, as well as further evaluation and management. Creatinine is elevated at 2.5, Likely the reason why her insulin is not metabolizing causing recurrent hypoglycemia. Because of the patients altered level of consciousness, renal failure, and subsequent poor glucose control, this may be an area of risk should it recur while the patient is driving. The patient was instructed not to drive until cleared by their doctor and a DMV form was submitted. I spoke with Dr. Haney, and reviewed the patients presentation, workup, results, and treatment. Patient is capitated by her insurance to [facility]. She agrees to be transferred there for continued management. Dr Haney will admit the patient for further care and evaluation, and assume care of the patient at this time. Allergies: Coded Allergies: No Known Allergies (Unverified , 03/08/19) COVID-19 Screening Contact w/high risk pt: No Recent Travel to affected area: No Experienced COVID-19 symptoms?: No COVID-19 Testing performed FANCY SEWER: No Patient History Now: No Nursing Documentation-[facility] Hx Hypertension: Yes Hx Diabetes: Yes Hx Seizures: Yes Physical Exam Vital Signs Date Time Temp Pulse Resp B/P (MAP) Pulse Ox O2 Delivery O2 Flow Rate FiO2 06/13/20 06:24 97.9 56 20 131/87 (102) 99 Room Air Sp02 EP Interpretation: reviewed, normal Medical Decision Making Diagnostic Impression: Primary Impression: Altered level of consciousness Additional Impressions: Hypoglycemia Renal insufficiency Anemia Hypertension Renal failure EKG Diagnostic Results Troponin ordered: Yes When was troponin ordered?: Jun 13, 2020 EKG Time: 06:43 Rate: normal Rhythm: NSR ST Segments: no acute changes ASA given to the pt in ED: No PA Scribe Text 12-lead EKG (interpreted by me) Time: 0656 Indication: Rhythm analysis Tracing visualized and Interpreted by me. Rhythm: Normal sinus rhythm Rate: 63 bpm QTc: 507 Morphology: No_significant_ST_elevations_or_depressions, No STEMI Impression: Normal_sinus_rhythm_without_significant_abnormality. Prolonged QT interval. Nonspecific ST changes Rhythm Strip Diag. Results Rhythm Strip Time: 06:43 EP Interpretation: yes Rate: 65 Rhythm: NSR, no PVC's, no ectopy Reevaluation Time: 07:30 Last Vital Signs Date Time Temp Pulse Resp B/P (MAP) Pulse Ox O2 Delivery O2 Flow Rate FiO2 11/3/20 06:24 97.9 56 20 131/87 (102) 99 Room Air Status: improved Disposition: ADMITTED INPATIENT - Transferred to [facility]. Accepting physician Dr Haney Admit Decision Time: 07:30 Condition: Stable Deepika Tinsley D.O. Jun 13, 2020 06:43
[2020-06-13 06:48] VITALS: BP 182/99
[2020-06-13 06:55] LABS: BASOPHILS % (AUTO) 0.9 % (0.0-2.0); EOSINOPHILS % (AUTO) 2.2 % (0.0-3.0); HEMATOCRIT 33.3 % (37.0-47.0); HEMOGLOBIN 10.7 G/DL (12.0-16.0); LYMPHOCYTES % (AUTO) 39.9 % (20.0-45.0); MEAN CORPUSCULAR VOLUME 96 FL (80-99); MONOCYTES % (AUTO) 2.7 % (1.0-10.0); NEUTROPHILS % (AUTO) 54.3 % (45.0-75.0); PLATELET COUNT 194 K/UL (150-450); RED BLOOD COUNT 3.47 M/UL (4.20-5.40); RED CELL DISTRIBUTION WIDTH 13.6 % (11.6-14.8); WHITE BLOOD COUNT 3.5 K/UL (4.8-10.8)
[2020-06-13] MEDS ORDERED: D5 1/2NS 1,000 ML IV SCH (07:00)
[2020-06-13 07:02] LABS: CALCIUM 8.6 MG/DL (8.5-10.1); CREATININE 2.5 MG/DL (0.55-1.30); POTASSIUM 3.9 MMOL/L (3.5-5.1)
[2020-06-13 07:07] LABS: ALBUMIN 2.6 G/DL (3.4-5.0); ALBUMIN/GLOBULIN RATIO 0.6 (1.0-2.7); BILIRUBIN,TOTAL 0.2 MG/DL (0.2-1.0)
[2020-06-13] MEDS ORDERED: hydroCHLOROthiazide 25mg cap ORAL ONE (08:15)
[2020-06-13] MEDS ORDERED: Enalaprilat 1.25mg/ml Inj IV ONE (08:15)
[2020-06-13 11:12] VITALS: BP 164/103
--- NOTE | 2020-06-14 04:14 | Cardiology Report ---
APPROVED REPORT EKG Measurement Heart [id number] <Conclusion> Normal sinus rhythm Possible Left atrial enlargement Septal infarct, age undetermined Lateral infarct, age undetermined Prolonged QT Abnormal ECG
== END 2020-06-13 11:16 | disposition short-term general hospital (02) ==
LOC: EDBD 06:28 → EMR 06:40
DX: E11.649 Type 2 diabetes mellitus with hypoglycemia without coma (principal); R41.82 Altered mental status, unspecified; N28.9 Disorder of kidney and ureter, unspecified; D64.9 Anemia, unspecified; I10 Essential (primary) hypertension; N19 Unspecified kidney failure; Z79.4 Long term (current) use of insulin
CPT/HCPCS: 36415; 80053; 82962; 83690; 84484; 84702; 84703; 85025; 93005; 96361; 96365; 96366; 96375; U0002; Z7502; 99284